=== PATIENT | male | born 1990 | race Caucasian/White ===

== ENCOUNTER 2020-11-16 20:09 | Emergency (ER) | payer OTHER ==
[~2020-11-16] VITALS: Ht 182.9 cm; Wt 77.7 kg
[2020-11-16] MEDS ORDERED: METHADONE PO (20:21)
[2020-11-16] MEDS ORDERED: ACETAMINOPHEN TAB 650MG DOSE (2X325MG) PO ONE (20:45)
[2020-11-16] MEDS ORDERED: LIDOCAINE VISCOUS 2% SOLN 15ML UDC SS ONE (21:15)
[2020-11-16] MEDS ORDERED: IBUPROFEN 800 MG TAB PO ONE (21:15)
[2020-11-16 21:40] VITALS: BP 129/81
== END 2020-11-16 21:41 | disposition home or self-care (01) ==
LOC: M ED 20:09
DX: J02.9 Acute pharyngitis, unspecified (principal); B34.9 Viral infection, unspecified; F11.10 Opioid abuse, uncomplicated; F17.200 Nicotine dependence, unspecified, uncomplicated

== ENCOUNTER 2025-06-12 07:34 | Inpatient (IN) | payer OTHER ==
[~2025-06-12] VITALS: Ht 172.7 cm; Wt 104.0 kg
[2025-06-12] VITALS (29 sets, daily range): BP systolic 95–154; BP diastolic 47–79; TEMP 97.6–100; O2SAT 97–100
[~2025-06-12 07:34] MED LIST: METHADONE PO
[2025-06-12] MEDS ORDERED: HOME MED LIST COMPLETE! XX SCH (08:10)
[2025-06-12] MEDS: METHADONE 10 MG TAB PO ONE (08:23)
[2025-06-12] MEDS: NS (Normal Saline) 0.9% 1,000 ML IV ONE ×2 (08:43→10:15)
[2025-06-12] MEDS: PANTOPRAZOLE 40MG VIAL IV ONE (08:43)
[2025-06-12 08:46] LABS: VENOUS BASE EXCESS -3.7 (-2.0-2.0); VENOUS HCO3 21.4 MMOL/L (23.0-27.0); VENOUS O2 SATURATION 68.7 % (60.0-80.0); VENOUS PARTIAL PRESSURE CO2 38.7 mmHg (38.0-50.0); VENOUS PARTIAL PRESSURE O2 44.5 mmHg (30.0-50.0); VENOUS PH 7.360 UNITS (7.330-7.430); VENOUS STANDARD HCO3 21.1 MMOL/L; VENOUS TOTAL CO2 22.6 MMOL/L (24.0-28.0)
[2025-06-12 08:56] LABS: PLATELET COUNT, AUTOMATED 481 10^3/uL (150-450)
[2025-06-12 09:12] LABS: ALT/SGPT 112.0 U/L (7.0-40); AST/SGOT 78.0 U/L (<34); CALCIUM LEVEL 7.9 MG/DL (8.5-10.1); CARBON DIOXIDE LEVEL 24.0 MMOL/L (20-31); CHLORIDE LEVEL 100.0 MMOL/L (98-107); CREATININE FOR GFR 1.47 MG/DL (0.70-1.30); GLOMERULAR FILTRATION RATE 63.4 (>60); POTASSIUM SERUM 4.8 MMOL/L (3.5-5.1); SODIUM LEVEL 139.0 MMOL/L (136-145)
[2025-06-12 09:39] LABS: INR 1.08
[2025-06-12 09:52] LABS: LYMPHOCYTES 9 % (16-44); MONOCYTES 3 % (0-5); MYELOCYTES 1 % (0-0); NEUTROPHILS 87 % (28-66); PLATELET ESTIMATE INCREASED (NORMAL)
[2025-06-12] MEDS: ONDANSETRON 4MG 2ML VIAL IV PRN (13:31)
[2025-06-12] MEDS ORDERED: dexAMETHasone 4 MG/ML 1 ML VIAL As Ordered ONE (15:27)
[2025-06-12] MEDS ORDERED: ONDANSETRON 4MG 2ML VIAL As Ordered ONE (15:27)
[2025-06-12] MEDS ORDERED: ROCURONIUM BROMIDE 50MG/5ML VIAL As Ordered ONE (15:28)
[2025-06-12] MEDS ORDERED: LIDOCAINE 2% 100 MG/5 ML SDV (FOR ANES.) As Ordered ONE (15:28)
[2025-06-12] MEDS ORDERED: MIDAZOLAM INJ 2 MG/2 ML VIAL As Ordered ONE (15:32)
[2025-06-12] MEDS ORDERED: NS (Normal Saline) 0.9% 1,000 ML IV SCH (16:15)
[2025-06-12] MEDS ORDERED: diphenhydrAMINE 50 MG/ML VIAL As Ordered ONE (16:26)
[2025-06-12] MEDS: diphenhydrAMINE 50 MG/ML VIAL IV ONE (16:31)
[2025-06-12] MEDS ORDERED: ONDANSETRON 4MG 2ML VIAL IV PRN (20:20)
[2025-06-12] MEDS ORDERED: PHENYLephrine 500MCG 5ML (100MCG/ML) SYRINGE As Ordered ONE (20:20)
[2025-06-12] MEDS ORDERED: MORPHINE 2 MG/ML 1 ML VIAL IV PRN (20:20)
[2025-06-12] MEDS ORDERED: ETOMIDATE 20 MG/10 ML VIAL As Ordered ONE (20:26)
[2025-06-12] MEDS: EPINEPHrine INJ 1 MG/ML 1ML AMP As Ordered ONE (20:28)
[2025-06-12] MEDS ORDERED: VASOPRESSIN INJ 20UNITS/ML 1ML VIAL As Ordered ONE (20:35)
[2025-06-12] MEDS: SIMETHICONE 40MG/0.6ML DROPS 30ML As Ordered ONE (20:48)
[2025-06-12] MEDS ORDERED: PANTOPRAZOLE 40MG VIAL IV SCH (21:00)
[2025-06-12] MEDS ORDERED: MIDAZOLAM 5 MG/ML 1 ML VIAL As Ordered ONE (21:21)
[2025-06-12] MEDS ORDERED: ACETAMINOPHEN *IV* 1,000 MG in IV 1 EA IV PRN (21:55)
[2025-06-12 22:35] LABS: ABG BASE EXCESS -5.3 (-2.0-2.0); ABG HCO3 19.7 MMOL/L (22.0-26.0); ABG O2 SATURATION 98.5 % (95.0-99.0); ABG PARTIAL PRESSURE CO2 36.3 mmHg (35.0-45.0); ABG PARTIAL PRESSURE O2 180.3 mmHg (75.0-100.0); ABG STANDARD HCO3 20.1 MMOL/L. (22.0-26.0); ABG TOTAL CO2 20.8 MMOL/L (22.0-29.0); ABG pH (ARTERIAL) 7.353 UNITS (7.350-7.450)
[2025-06-12] MEDS: MIDAZOLAM INJ 2 MG/2 ML VIAL IV PRN (22:45)
[2025-06-12 22:47] LABS: PLATELET COUNT, AUTOMATED 219 10^3/uL (150-450)
[2025-06-12 22:57] LABS: INR 1.24
[2025-06-12] MEDS ORDERED: FENTANYL DRIP LOCK BOX KEY 1 EACH XX PRN (23:00)
[2025-06-12] MEDS: fentaNYL CITRATE/NaCl 1,000 MCG in IV 1 EA IV SCH (23:08)
[2025-06-12 23:15] LABS: ALT/SGPT 49.0 U/L (7.0-40); AST/SGOT 43.0 U/L (<34); CALCIUM LEVEL 5.7 MG/DL (8.5-10.1); CARBON DIOXIDE LEVEL 23.0 MMOL/L (20-31); CHLORIDE LEVEL 107.0 MMOL/L (98-107); CREATININE FOR GFR 1.27 MG/DL (0.70-1.30); GLOMERULAR FILTRATION RATE 75.6 (>60); POTASSIUM SERUM 4.6 MMOL/L (3.5-5.1); SODIUM LEVEL 140.0 MMOL/L (136-145)
[2025-06-12] MEDS: PANTOPRAZOLE 40MG VIAL IV SCH (23:41)
[2025-06-13] VITALS (65 sets, daily range): BP systolic 52–150; BP diastolic 40–104; TEMP 98.2–98.6; O2SAT 96–100
[2025-06-13] MEDS: CALCIUM GLUCONATE 1,000 MG in DEXTROSE 5% (D5W) MINI-BAG PLU 100 ML IV SCH (01:08)
[2025-06-13] MEDS: MIDAZOLAM 100MG/100ML-0.9%NACL 100 MG in IV 1 EA IV SCH (01:08)
[2025-06-13] MEDS: dexmedeTOMidine 200 MCG in IV 1 EA IV SCH (02:29)
[2025-06-13 02:30] LABS: PLATELET COUNT, AUTOMATED 209 10^3/uL (150-450)
[2025-06-13 05:49] LABS: ABG BASE EXCESS -3.7 (-2.0-2.0); ABG HCO3 20.1 MMOL/L (22.0-26.0); ABG O2 SATURATION 98.5 % (95.0-99.0); ABG PARTIAL PRESSURE CO2 31.2 mmHg (35.0-45.0); ABG PARTIAL PRESSURE O2 136.1 mmHg (75.0-100.0); ABG STANDARD HCO3 21.4 MMOL/L. (22.0-26.0); ABG TOTAL CO2 21.0 MMOL/L (22.0-29.0); ABG pH (ARTERIAL) 7.426 UNITS (7.350-7.450)
[2025-06-13 06:38] LABS: PLATELET COUNT, AUTOMATED 224 10^3/uL (150-450)
[2025-06-13 06:49] LABS: INR 1.2
[2025-06-13 07:39] LABS: ALT/SGPT 49.0 U/L (7.0-40); AST/SGOT 32.0 U/L (<34); CALCIUM LEVEL 6.7 MG/DL (8.5-10.1); CARBON DIOXIDE LEVEL 21.0 MMOL/L (20-31); CHLORIDE LEVEL 108.0 MMOL/L (98-107); CREATININE FOR GFR 1.35 MG/DL (0.70-1.30); GLOMERULAR FILTRATION RATE 70.2 (>60); POTASSIUM SERUM 4.5 MMOL/L (3.5-5.1); SODIUM LEVEL 143.0 MMOL/L (136-145)
[2025-06-13] MEDS ORDERED: METH10CO3 PO (08:48)
[2025-06-13] MEDS ORDERED: METHADONE 10 MG TAB PO SCH (09:00)
[2025-06-13] MEDS: LR 1,000 ML IV SCH (09:00)
[2025-06-13 10:25] LABS: PLATELET COUNT, AUTOMATED 206 10^3/uL (150-450)
[2025-06-13] MEDS ORDERED: ISOVUE-370 76% 100 ML VIAL As Ordered ONE (11:45)
[2025-06-13 14:19] LABS: PLATELET COUNT, AUTOMATED 187 10^3/uL (150-450)
[2025-06-13 14:50] LABS: CALCIUM LEVEL 6.3 MG/DL (8.5-10.1); CARBON DIOXIDE LEVEL 24.0 MMOL/L (20-31); CHLORIDE LEVEL 108.0 MMOL/L (98-107); CREATININE FOR GFR 1.37 MG/DL (0.70-1.30); GLOMERULAR FILTRATION RATE 69.0 (>60); POTASSIUM SERUM 4.4 MMOL/L (3.5-5.1); SODIUM LEVEL 140.0 MMOL/L (136-145)
[2025-06-13] MEDS: CALCIUM GLUCONATE 1,000 MG in DEXTROSE 5% (D5W) MINI-BAG PLU 100 ML IV ONE (15:32)
[2025-06-13] MEDS ORDERED: NOREPINEPHRINE 4MG IN D5 250ML 4 MG in IV 1 EA IV SCH (16:35)
[2025-06-13] MEDS ORDERED: NOREPINEPHRINE 4 MG IN D5W 250 ML IVBAG (16 MCG/ML) As Ordered ONE (16:39)
== END 2025-06-13 17:57 | disposition short-term general hospital (02) | DRG 241 ==
LOC: M ED 07:34 → EDBEDREQSVC 09:29 → M ED INP 13:33 → M PCU 17:25 → M ICU 18:35
PROVIDERS: ADMIT Family Medicine; ATTEND Internal Medicine Pulmonary Disease
PROC: 5A1945Z Respiratory Ventilation, 24-96 Consecutive Hours (ICD-10-PCS; 2025-06-12)
PROC: 05HM33Z Insertion of Infusion Device into Right Internal Jugular Vein, Percutaneous Approach (ICD-10-PCS; 2025-06-12)
PROC: 0DJ08ZZ Inspection of Upper Intestinal Tract, Via Natural or Artificial Opening Endoscopic (ICD-10-PCS; 2025-06-12)
PROC: 30233N1 Transfusion of Nonautologous Red Blood Cells into Peripheral Vein, Percutaneous Approach (ICD-10-PCS; 2025-06-12)
PROC: 30233R1 Transfusion of Nonautologous Platelets into Peripheral Vein, Percutaneous Approach (ICD-10-PCS; 2025-06-12)
PROC: 30233K1 Transfusion of Nonautologous Frozen Plasma into Peripheral Vein, Percutaneous Approach (ICD-10-PCS; 2025-06-12)
PROC: 0W3P8ZZ Control Bleeding in Gastrointestinal Tract, Via Natural or Artificial Opening Endoscopic (ICD-10-PCS; principal; 2025-06-12 19:45)
PROC: 04HK33Z Insertion of Infusion Device into Right Femoral Artery, Percutaneous Approach (ICD-10-PCS; 2025-06-13)
DX: K26.4 Chronic or unspecified duodenal ulcer with hemorrhage (principal); J96.00 Acute respiratory failure, unspecified whether with hypoxia or hypercapnia; R57.8 Other shock; N17.9 Acute kidney failure, unspecified; D68.32 Hemorrhagic disorder due to extrinsic circulating anticoagulants; E87.20 Acidosis, unspecified; F11.20 Opioid dependence, uncomplicated; I95.9 Hypotension, unspecified; D72.829 Elevated white blood cell count, unspecified; D62 Acute posthemorrhagic anemia; K92.0 Hematemesis

== ENCOUNTER → 2025-08-01 | Outpatient (CLI) | payer MEDICAID, OTHER ==
[~2025-08-01] MED LIST changes: +METH10CO3 PO
== END ==
LOC: M RAD 15:17
PROVIDERS: ATTEND Physician Assistant
DX: Z86.718 Personal history of other venous thrombosis and embolism (principal)